=== PATIENT | male | born 1935 | race Caucasian/White ===

== ENCOUNTER → 2017-04-27 | Outpatient (CLI) | payer MEDICARE ==
--- NOTE | 2017-04-27 13:24 | DIAGNOSTIC IMAGING REPORT ---
LEFT FINGER(S) MIN 2 VIEWS ROUTINE CLINICAL HISTORY: 81 years-old Male presenting with M79.89 Swelling of left little middle finger, dig. TECHNIQUE: Frontal, oblique, and lateral views of the left third finger were obtained. COMPARISON: None. FINDINGS: Oblique fracture through the tuft of the distal phalanx of the left third finger. Soft tissue swelling at the tuft noted. No additional acute fracture is evident. No malalignment at the distal interphalangeal joint. IMPRESSION: Acute fracture of the tuft of the distal phalanx of the left third finger. Electronically signed by: Angel Lemons M.D. 04/27/2017 1:23 PM Dictated Date/Time: 04/27/2017 1:19 PM
--- NOTE | 2017-04-27 14:09 | DIAGNOSTIC IMAGING REPORT ---
LEFT EXTREMITY NONVASCULAR LIMITED CLINICAL HISTORY: 81 years-old Male presenting with TO EVALUATE SOFT TISSUE SWELLING. TECHNIQUE: Real-time grayscale ultrasound imaging of the left anterior middle finger was performed. Color Doppler was also performed. COMPARISON: Correlation made to plain radiographs performed earlier the same day. FINDINGS: Along the distal volar aspect of the left third finger, a 1.6 x 1.1 x 1.4 cm round hypoechoic isoechoic mass is noted. This is avascular. In retrospect, this lesion may be exerting mass effect with osseous erosion on the tuft of the distal phalanx. IMPRESSION: 1. Extraosseous mass with cortical thinning of the tuft of the distal phalanx of the third finger. 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 Electronically signed by: Angel Lemons M.D. 04/27/2017 2:08 PM Dictated Date/Time: 04/27/2017 2:00 PM
== END | disposition home or self-care (01) ==
LOC: C.ULTR 12:43
PROVIDERS: ATTEND Physician Assistant
DX: M79.89 Other specified soft tissue disorders (principal); S62.663A Nondisplaced fracture of distal phalanx of left middle finger, initial encounter for closed fracture; X58.XXXA Exposure to other specified factors, initial encounter

== ENCOUNTER → 2018-04-04 | Outpatient (CLI) | payer MEDICARE | END | disposition home or self-care (01) | LOC: C.RDSM 10:25 | PROVIDERS: ATTEND Orthopaedic Surgery Sports Medicine | DX: M25.562 Pain in left knee (principal) ==

== ENCOUNTER 2021-02-05 17:26 | Inpatient (IN) ==
[2021-02-05] MEDS ORDERED: SODIUM CHLORIDE 0.9% 500 ML IV STA (17:46)
--- NOTE | 2021-02-05 18:04 | XRay Report ---
XR chest 1V portable CLINICAL HISTORY: Acute change in mental status COMPARISON STUDY: April 2014 FINDINGS: The heart is enlarged. There is a retrocardiac opacity likely representing a hiatal hernia. There are left-sided pleural calcifications. There is no lobar consolidation. There is no overt fail ure.[ IMPRESSION: 1. Cardiomegaly 2. Pleural calcifications 3. Retrocardiac opacity likely representing a hiatal hernia 4. Possible pericardial calcifications ACT 112: Negative or not required by law. Electronically signed by: Jose R Patel M.D. 02/05/2021 6:02 PM
[2021-02-05 18:19] LABS: Basophils # (auto) 0.02 K/uL (0-0.2); Basophils % (auto) 0.3 %; Eosinophils % (auto) 1.7 %; Hematocrit (blood only) 38.3 % (42-52); Hemoglobin 13.1 g/dL (14.0-18.0); Immature Granulocytes # (auto) 0.01 K/uL (0.00-0.02); Immature Granulocytes % (auto) 0.2 %; Lymphocytes # (auto) 0.86 K/uL (1.2-3.4); Lymphocytes % (auto) 14.4 %; Mean Corpuscular Hemoglobin 32.5 pg (25-34); Mean Corpuscular Hgb Conc 34.2 g/dL (32-36); Mean Platelet Volume 10.9 fL (7.4-10.4); Monocytes # (auto) 0.53 K/uL (0.11-0.59); Monocytes % (auto) 8.9 %; Neutrophils # (auto) 4.45 K/uL (1.4-6.5); Neutrophils % (auto) 74.5 %; Platelet Count 151 K/uL (130-400); RDW Coefficient of Variation 12.7 % (11.5-14.5); Red Blood Count 4.03 M/uL (4.7-6.1); White Blood Count 5.97 K/uL (4.8-10.8)
--- NOTE | 2021-02-05 18:31 | Emergency Department Note ---
Impression & Plan Altered mental status, HTN (hypertension) ED Provider Note NAME: LENA SHEPPARD AGE: 85 SEX: M : 1935 ARRIVES VIA: Walk-In INFORMANT: Patient ED PROVIDER(S): David Ashby DO CHIEF COMPLAINT: Altered mental status HPI: Patient is an 85-year-old male who presents to the ER for confusion. This started this morning when she woke up around 9 AM. Patient does not remember where he is or what is going on. Patient denies any headache or change in vision. No chest pain or shortness of breath. He did have a headache within the past 24 hours but does not remember. Denies any belly pain, nausea, vomiting, or diarrhea. No dysuria urgency or frequency. ROS: See above HPI for pertinent positives & negatives. A total of 10 systems reviewed and were otherwise negative. PAST MEDICAL HISTORY:See Below PAST SURGICAL HISTORY:See Below FAMILY HISTORY:See Below SOCIAL HISTORY:See Below HOME MEDICATIONS:See Below ALLERGIES:See Below VITALS:See Below PHYSICAL EXAMINATION: GENERAL: Sitting up in bed, alert, well appearing, well nourished, no distress, non-toxic EYE EXAM: normal conjunctiva. PERRL and EOM's grossly intact. OROPHARYNX: no exudate, no erythema, lips, buccal mucosa, and tongue normal and mucous membranes are moist NECK: supple, no nuchal rigidity, no adenopathy, non-tender LUNGS: Clear to auscultation. Normal chest wall mechanics HEART: no murmurs, S1 normal and S2 normal ABDOMEN: abdomen soft, non-tender, normo-active bowel sounds, no masses, no rebound or guarding. UPPER EXTREMITIES: upper extremities are grossly normal. LOWER EXTREMITIES: No pitting edema. NEURO EXAM: Oriented to person, place but not year, cranial nerves II-XII intact, normal speech, no weakness of arms, no weakness of legs. No drift. Finger to nose intact. Gross sensation intact. MEDICAL DECISION MAKING: Patient is an 85-year-old male who presents the ER for confusion which started this morning. Patient was brought in by his . IV was established blood work was obtained. Labs show no significant leukocytosis or anemia. BMP along with LFTs bilirubin and lipase is unremarkable. UA was clean. Covid was negative. CT of the head was unremarkable. Portable AP upright 1 view of the chest was unremarkable as well. Patient is completely neurologically intact with the exception of confusion. He was updated bedside. Discussed with hospitalist for further evaluation. Triage Nursing notes reviewed. Limited review of prior medical records performed Vital Signs: reviewed and remarkable for HTN Differential diagnosis: Differential diagnoses includes but is not limited to toxic, metabolic, infectious, traumatic, cardiac, neurologic, hematologic, psychiatric and infla mmatory etiologies. ER treatment provided: See below Diagnostics interpreted by me: ECG: none Cardiac Monitoring: An order was placed for continuous cardiac monitoring. The monitor shows a rate of 62 with sinus rhythm. Laboratory studies: As stated above and show below. Imaging studies: CT head was unremarkable Portable AP upright 1 view the chest was unremarkable Consultation(s): Discussed the hospitalist for further evaluation Procedures: none Critical Care: None Past Med/Surg History Social History Feels Safe at Home: Yes Allergies Allergies Allergy/AdvReac Type Severity Reaction Status Date / Time morphine AdvReac Mild NAUSEA Verified 02/05/21 18:29 Home Meds Home Medications Medication Instructions Recorded Confirmed acetaminophen [Tylenol Extra 500 mg PO DIRECTED PRN 02/05/21 02/05/21 Strength] amlodipine 5 mg PO DAILY 02/05/21 02/05/21 aspirin 81 mg PO DAILY 02/05/21 02/05/21 atorvastatin 10 mg PO DAILY 02/05/21 02/05/21 naproxen sodium [Aleve] 440 mg PO QAM 02/05/21 02/05/21 omeprazole 40 mg PO DAILYBB 02/05/21 02/05/21 Results & Data (ED) Vital Signs Vital Signs - 24 hr 02/05/21 17:28 02/05/21 19:00 02/05/21 20:22 Temperature 36.3 C L Temperature Source Temporal Artery Scan Pulse Rate 82 Pulse Rate [Finger] 71 66 Respiratory Rate 20 18 14 Respiratory Effort / Characteristics Non-Labored Non-Labored Spontaneous Respiratory Depth Normal Normal Respiratory Pattern Regular Regular Blood Pressure 176/86 H Blood Pressure [Right Arm] 179/86 H 187/88 H Blood Pressure Mean 116 Blood Pressure Mean [Right Arm] 117 121 Blood Pressure Position Sitting Pulse Oximetry 95 95 95 Oxygen Delivery Method Room Air Room Air Room Air Sepsis Recent Fever Within 48 Hours No Sepsis New/Unexplained Change in Mental Status No Sepsis Action Taken by Nursing No Action Required Laboratory Data Result diagrams: 02/05/21 17:55 02/05/21 17:55 Lab Results 02/05/21 02/05/21 02/05/21 Range/Units 17:55 17:55 19:05 WBC 5.97 (4.8-10.8) K/uL RBC 4.03 L (4.7-6.1) M/uL Hgb 13.1 L (14.0-18.0) g/dL Hct 38.3 L (42-52) % MCV 95.0 (80-100) fL MCH 32.5 (25-34) pg MCHC 34.2 (32-36) g/dL RDW Std Deviation 44.0 (36.4-46.3) fL RDW Coeff of Imelda 12.7 (11.5-14.5) % Plt Count 151 (130-400) K/uL MPV 10.9 H (7.4-10.4) fL Immature Gran % (Auto) 0.2 % Neut % (Auto) 74.5 % Lymph % (Auto) 14.4 % [place] % (Auto) 8.9 % Eos % (Auto) 1.7 % Baso % (Auto) 0.3 % Neut # (Auto) 4.45 (1.4-6.5) K/uL Lymph # (Auto) 0.86 L (1.2-3.4) K/uL [place] # (Auto) 0.53 (0.11-0.59) K/uL Eos # (Auto) 0.10 (0-0.5) K/uL Baso # (Auto) 0.02 (0-0.2) K/uL Immature Gran # (Auto) 0.01 (0.00-0.02) K/uL Sodium 139 (136-145) mmol/L Potassium 3.8 (3.5-5.1) mmol/L Chloride 107 (98-107) mmol/L Carbon Dioxide 26 (21-32) mmol/L Anion Gap 6.0 (3-11) BUN 16 (7-18) mg/dl Creatinine 0.75 (0.6-1.4) mg/dl Est Cr Clr Drug Dosing 73.0 ml/min Est GFR ( Amer) 96.3 ml/min Est GFR (Non-Af Amer) 83.1 ml/min BUN/Creatinine Ratio 21.2 H (10-20) Glucose 92 (70-99) mg/dl Calcium 8.7 (8.5-10.1) mg/dl Total Bilirubin 1.0 (0.2-1) mg/dl AST 14 L (15-37) U/L ALT 15 (12-78) U/L Alkaline Phosphatase 95 (45-117) U/L Total Protein 6.8 (6.4-8.2) gm/dl Albumin 3.5 (3.4-5.0) gm/dl Globulin 3.3 (2.5-4.0) gm/dl Albumin/Globulin Ratio 1.0 (0.9-2) Lipase 175 (73-393) U/L Urine Color Yellow Urine Appearance Clear (Clear) Urine pH 7.0 (4.5-7.5) Ur Specific [place] 1.004 (1.000-1.030) Urine Protein Negative (Negative) Urine Glucose (UA) Negative (Negative) Urine Ketones Negative (Negative) Urine Blood Negative (Negative) Urine Nitrite Negative (Negative) Urine Bilirubin Negative (Negative) Urine Urobilinogen Negative (Negative) Ur Leukocyte Esterase Negative (Negative) COVID-19 Eval Order SARS-CoV-2 (PCR) (Negative) 02/05/21 02/05/21 Range/Units 20:26 20:26 WBC (4.8-10.8) K/uL RBC (4.7-6.1) M/uL Hgb (14.0-18.0) g/dL Hct (42-52) % MCV (80-100) fL MCH (25-34) pg MCHC (32-36) g/dL RDW Std Deviation (36.4-46.3) fL RDW Coeff of Imelda (11.5-14.5) % Plt Count (130-400) K/uL MPV (7.4-10.4) fL Immature Gran % (Auto) % Neut % (Auto) % Lymph % (Auto) % [place] % (Auto) % Eos % (Auto) % Baso % (Auto) % Neut # (Auto) (1.4-6.5) K/uL Lymph # (Auto) (1.2-3.4) K/uL [place] # (Auto) (0.11-0.59) K/uL Eos # (Auto) (0-0.5) K/uL Baso # (Auto) (0-0.2) K/uL Immature Gran # (Auto) (0.00-0.02) K/uL Sodium (136-145) mmol/L Potassium (3.5-5.1) mmol/L Chloride (98-107) mmol/L Carbon Dioxide (21-32) mmol/L Anion Gap (3-11) BUN (7-18) mg/dl Creatinine (0.6-1.4) mg/dl Est Cr Clr Drug Dosing ml/min Est GFR ( Amer) ml/min Est GFR (Non-Af Amer) ml/min BUN/Creatinine Ratio (10-20) Glucose (70-99) mg/dl Calcium (8.5-10.1) mg/dl Total Bilirubin (0.2-1) mg/dl AST (15-37) U/L ALT (12-78) U/L Alkaline Phosphatase (45-117) U/L Total Protein (6.4-8.2) gm/dl Albumin (3.4-5.0) gm/dl Globulin (2.5-4.0) gm/dl Albumin/Globulin Ratio (0.9-2) Lipase (73-393) U/L Urine Color Urine Appearance (Clear) Urine pH (4.5-7.5) Ur Specific [place] (1.000-1.030) Urine Protein (Negative) Urine Glucose (UA) (Negative) Urine Ketones (Negative) Urine Blood (Negative) Urine Nitrite (Negative) Urine Bilirubin (Negative) Urine Urobilinogen (Negative) Ur Leukocyte Esterase (Negative) COVID-19 Eval Order Covid19 at [facility] SARS-CoV-2 (PCR) NEGATIVE (Negative) Administered Medications Discontinued Medications Sodium Chloride (Nss) 500 mls @ 999 mls/hr IV .Q31M STA Stop: 02/05/21 18:16 Last Infusion: 02/05/21 19:34 Dose: 0 mls/hr Documented by: [id number] Admin: 02/05/21 19:03 Dose: 999 mls/hr Documented by: [id number] Ioversol (Optiray 350 500ml) 118 ml IV ONCE ONE Stop: 02/05/21 21:34 Last Admin: 02/05/21 21:34 Dose: 1 ml Documented by: [id number] Imaging Data Radiologist's Impression: Chest X-Ray 02/05/21 17:46 XR chest 1V portable CLINICAL HISTORY: Acute change in mental status COMPARISON STUDY: April 2014 FINDINGS: The heart is enlarged. There is a retrocardiac opacity likely representing a hiatal hernia. There are left-sided pleural calcifications. There is no lobar consolidation. There is no overt failure.[ IMPRESSION: 1. Cardiomegaly 2. Pleural calcifications 3. Retrocardiac opacity likely representing a hiatal hernia 4. Possible pericardial calcifications ACT 112: Negative or not required by law. Electronically signed by: Jose R Patel M.D. 02/05/2021 6:[address] 02/05/21 17:46 CT head/brain wo con CLINICAL HISTORY: Acute change in mental status COMPARISON STUDY: No previous studies for comparison. TECHNIQUE: Axial CT of the brain is performed from the vertex to the skull base. IV contrast was not administered for this examination. A dose lowering technique was utilized adhering to the principles of ALARA. CT DOSE: 614.27 mGy.cm FINDINGS: No intra or extra-axial mass lesions are visualized. There is no CT evidence of acute cortical infarction. There is no evidence of midline shift. There is no acute hemorrhage. No calvarial fractures are visualized. There are moderate white matter hypodensities likely on a small vessel basis. 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 There is no evidence of pathologic ventricular dilatation. There is no evidence of acute sinusitis. 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 IMPRESSION: No acute intracranial findings ACT 112: Negative or not required by law. Electronically signed by: Jose R Patel M.D. 02/05/2021 7:40 PM Discharge Plan Visit Data Chief Complaint: Altered Mental Status Stated Complaint: POSSIBLE MINI STROKE-TROUBLED MEMORY ED Provider: David Ashby Discharge Problem: Altered mental status, HTN (hypertension) Forms Stand Alone Forms: My [facility] [employer] Prescriptions Prescriptions: No Action atorvastatin 10 mg tablet 10 mg PO DAILY RF: 0 amlodipine 5 mg tablet 5 mg PO DAILY RF: 0 omeprazole 40 mg capsule,delayed release(DR/EC) 40 mg PO DAILYBB RF: 0 aspirin 81 mg Tablet,Delayed Release (Dr/Ec) 81 mg PO DAILY RF: 0 acetaminophen [Tylenol Extra Strength] 500 mg Tablet 500 mg PO DIRECTED PRN (Reason: Pain) RF: 0 naproxen sodium [Aleve] 220 mg Tablet 440 mg PO QAM RF: 0 Discharge Problem: Altered mental status Qualifiers: Altered mental status type: unspecified Qualified Code(s): R41.82 - Altered mental status, unspecified HTN (hypertension) Qualifiers: Hypertension type: unspecified Qualified Code(s): I10 - Essential (primary) hypertension
[2021-02-05 18:39] LABS: Albumin Level 3.5 gm/dl (3.4-5.0); BUN Creatinine Ratio 21.2 (10-20); Calcium 8.7 mg/dl (8.5-10.1); Est GFR (African American) 96.3 ml/min; Est GFR (Non-African American) 83.1 ml/min; Potassium 3.8 mmol/L (3.5-5.1)
[2021-02-05 18:41] LABS: Globulin 3.3 gm/dl (2.5-4.0); Total Protein 6.8 gm/dl (6.4-8.2)
[2021-02-05 19:21] LABS: Appearance Urine Clear (Clear); Bilirubin Urine Negative (Negative); Blood Urine Negative (Negative); Color Urine Yellow; Glucose Urine UA Negative (Negative); Ketones Urine Negative (Negative); Leukocyte Esterase Urine Negative (Negative); Nitrite Urine Negative (Negative); Protein Urine Negative (Negative); Specific Gravity Urine 1.004 (1.000-1.030); Urobilinogen Urine Negative (Negative)
--- NOTE | 2021-02-05 19:41 | CT Scan Report ---
CT head/brain wo con CLINICAL HISTORY: Acute change in mental status COMPARISON STUDY: No previous studies for comparison. TECHNIQUE: Axial CT of the brain is performed from the vertex to the skull base. IV contrast was not administered for this examination. A dose lowering technique was utilized adhering to the principles of ALARA. CT DOSE: 614.27 mGy.cm FINDINGS: No intra or extra-axial mass lesions are visualized. There is no CT evidence of acute cortical infarc tion. There is no evidence of midline shift. There is no acute hemorrhage. No calvarial fractures ar e visualized. There are moderate white matter hypodensities likely on a small vessel basis. There is an old left oc cipital lobe infarct. There is no evidence of pathologic ventricular dilatation. There is no evidence of acute sinusitis. 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 IMPRESSION: No acute intracranial findings ACT 112: Negative or not required by law. Electronically signed by: Jose R Patel M.D. 02/05/2021 7:40 PM
[2021-02-05] MEDS ORDERED: OPTIRAY 350 500ml IV ONE (21:33)
--- NOTE | 2021-02-05 22:45 | History & Physical Report ---
Date of Service February 05, 2021 Assessment & Plan (1) Aphasia: Sherlyn Tabor is a 83-year-old male with past medical history significant for hyperlipidemia and hypertension; who presents for concerns of altered mental status and abnormal speech starting this morning. 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 -Lipid panel ordered -A1c ordered -MRI ordered -Neuro consulted as part of stroke protocol given concerns for stroke with aphasia maintained -As needed medications for hypertension Hypertension: -Continue home amlodipine Hyperlipidemia: -Continue home atorvastatin -Likely will need escalation in dosing given stroke concerns Diet: Advance as tolerated CODE STATUS: DNR/DNI DVT prophylaxis: Deferred at this time (2) HTN (hypertension): (3) Hyperlipidemia: (4) GERD (gastroesophageal reflux disease): History of Present Illness Primary Care Provider: Tresa Martin DO Sherlyn Tabor is a 83-year-old male with past medical history significant for hyperlipidemia and hypertension; who presents for concerns of altered mental status and abnormal speech starting this morning. Patient seen in the ER emergency department with family at bedside, patient continuing to have broken speech unable to follow or answer questions appropriately, when asked about how he was feeling family indicates he tells a story based off of a headache that he had months ago. Will indicate that he was driving earlier in the day however family indicates that this is incorrect. What family is able to corroborate is that he woke up early this morning originally's just staring off into space, and then upon getting up from bed he was having garbled speech throughout the entire day which ultimately caused them to present to the emergency room. Patient endorses no current symptoms as far as he can tell given inappropriate and inconsistent verbal responses to repetitive questioning. Allergies Allergy/AdvReac Type Severity Reaction Status Date / Time morphine AdvReac Mild NAUSEA Verified 02/05/21 18:29 Home Medications Medication Instructions Recorded Confirmed Type acetaminophen [Tylenol Extra 500 mg PO DIRECTED PRN 02/05/21 02/05/21 History Strength] amlodipine 5 mg PO DAILY 02/05/21 02/05/21 History aspirin 81 mg PO DAILY 02/05/21 02/05/21 History naproxen sodium [Aleve] 440 mg PO QAM 02/05/21 02/05/21 History omeprazole 40 mg PO DAILYBB 02/05/21 02/05/21 History atorvastatin 40 mg PO HS #30 tab 02/06/21 Rx Past Med/Surg History Medical History HTN (hypertension) Hyperlipidemia Surgical History History of appendectomy Family History Mother , in her late 30s after complications from a . No problems noted. 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 Feels Safe at Home: Yes Assistive Devices: Cane Review of Systems Review of Systems: All systems reviewed & are unremarkable except as noted in HPI & below Physical Exam Constitutional: WD/WN, vitals as above Eyes: PERRL, conjunctivae normal, anicteric sclerae Respiratory: normal respiratory effort, lungs clear to auscultation Auscultation: no crackles, no rales, no rhonchi and no wheezes Cardiovascular: Rate/Rhythm: regular rate and regular rhythm Heart Sounds: no gallop, no murmur and no cardiac rub Vessels: normal peripheral pulses; no JVD Extremities: no edema Gastrointestinal (Abdomen): Inspection/Auscultation: normal bowel sounds; abdomen not distended Percussion/Palpation: abdomen soft; abdomen nontender and no guarding Musculoskeletal: no cyanosis or clubbing, extremities motor strength 5/5 Skin: no rashes, warm and dry Neurologic: Speech / Cognition: no expressive aphasia and no receptive aphasia Cranial Nerves: PERRL, normal accommodation, EOM intact bilaterally, normal facial strength, tongue midline, normal hearing, able to rotate head bilaterally, able to elevate shoulders bilaterally, no nystagmus and symmetric palate elevation Psychiatric: Orientation: alert; + not oriented x 3 Results & Data Results & Data ([facility]) Vital Signs (Past 12 Hours) Vital Signs Temp Pulse Pulse Resp BP BP Pulse Ox 02/05/21 20:22 66 14 187/88 H 95 02/05/21 19:00 71 18 179/86 H 95 02/05/21 17:28 36.3 C L 82 20 176/86 H 95 Laboratory Results 02/05/21 02/05/21 02/05/21 Range/Units 20:26 20:26 19:05 WBC (4.8-10.8) K/uL RBC (4.7-6.1) M/uL Hgb (14.0-18.0) g/dL Hct (42-52) % MCV (80-100) fL MCH (25-34) pg MCHC (32-36) g/dL RDW Std Deviation (36.4-46.3) fL RDW Coeff of Imelda (11.5-14.5) % Plt Count (130-400) K/uL MPV (7.4-10.4) fL Immature Gran % (Auto) % Neut % (Auto) % Lymph % (Auto) % [place] % (Auto) % Eos % (Auto) % Baso % (Auto) % Neut # (Auto) (1.4-6.5) K/uL Lymph # (Auto) (1.2-3.4) K/uL [place] # (Auto) (0.11-0.59) K/uL Eos # (Auto) (0-0.5) K/uL Baso # (Auto) (0-0.2) K/uL Immature Gran # (Auto) (0.00-0.02) K/uL Sodium (136-145) mmol/L Potassium (3.5-5.1) mmol/L Chloride (98-107) mmol/L Carbon Dioxide (21-32) mmol/L Anion Gap (3-11) BUN (7-18) mg/dl Creatinine (0.6-1.4) mg/dl Est Cr Clr Drug Dosing ml/min Est GFR ( Amer) ml/min Est GFR (Non-Af Amer) ml/min BUN/Creatinine Ratio (10-20) Glucose (70-99) mg/dl Calcium (8.5-10.1) mg/dl Total Bilirubin (0.2-1) mg/dl AST (15-37) U/L ALT (12-78) U/L Alkaline Phosphatase (45-117) U/L Total Protein (6.4-8.2) gm/dl Albumin (3.4-5.0) gm/dl Globulin (2.5-4.0) gm/dl Albumin/Globulin Ratio (0.9-2) Lipase (73-393) U/L Urine Color Yellow Urine Appearance Clear (Clear) Urine pH 7.0 (4.5-7.5) Ur Specific [place] 1.004 (1.000-1.030) Urine Protein Negative (Negative) Urine Glucose (UA) Negative (Negative) Urine Ketones Negative (Negative) Urine Blood Negative (Negative) Urine Nitrite Negative (Negative) Urine Bilirubin Negative (Negative) Urine Urobilinogen Negative (Negative) Ur Leukocyte Esterase Negative (Negative) COVID-19 Eval Order Covid19 at [facility] SARS-CoV-2 (PCR) NEGATIVE (Negative) 02/05/21 02/05/21 Range/Units 17:55 17:55 WBC 5.97 (4.8-10.8) K/uL RBC 4.03 L (4.7-6.1) M/uL Hgb 13.1 L (14.0-18.0) g/dL Hct 38.3 L (42-52) % MCV 95.0 (80-100) fL MCH 32.5 (25-34) pg MCHC 34.2 (32-36) g/dL RDW Std Deviation 44.0 (36.4-46.3) fL RDW Coeff of Imelda 12.7 (11.5-14.5) % Plt Count 151 (130-400) K/uL MPV 10.9 H (7.4-10.4) fL Immature Gran % (Auto) 0.2 % Neut % (Auto) 74.5 % Lymph % (Auto) 14.4 % [place] % (Auto) 8.9 % Eos % (Auto) 1.7 % Baso % (Auto) 0.3 % Neut # (Auto) 4.45 (1.4-6.5) K/uL Lymph # (Auto) 0.86 L (1.2-3.4) K/uL [place] # (Auto) 0.53 (0.11-0.59) K/uL Eos # (Auto) 0.10 (0-0.5) K/uL Baso # (Auto) 0.02 (0-0.2) K/uL Immature Gran # (Auto) 0.01 (0.00-0.02) K/uL Sodium 139 (136-145) mmol/L Potassium 3.8 (3.5-5.1) mmol/L Chloride 107 (98-107) mmol/L Carbon Dioxide 26 (21-32) mmol/L Anion Gap 6.0 (3-11) BUN 16 (7-18) mg/dl Creatinine 0.75 (0.6-1.4) mg/dl Est Cr Clr Drug Dosing 73.0 ml/min Est GFR ( Amer) 96.3 ml/min Est GFR (Non-Af Amer) 83.1 ml/min BUN/Creatinine Ratio 21.2 H (10-20) Glucose 92 (70-99) mg/dl Calcium 8.7 (8.5-10.1) mg/dl Total Bilirubin 1.0 (0.2-1) mg/dl AST 14 L (15-37) U/L ALT 15 (12-78) U/L Alkaline Phosphatase 95 (45-117) U/L Total Protein 6.8 (6.4-8.2) gm/dl Albumin 3.5 (3.4-5.0) gm/dl Globulin 3.3 (2.5-4.0) gm/dl Albumin/Globulin Ratio 1.0 (0.9-2) Lipase 175 (73-393) U/L Urine Color Urine Appearance (Clear) Urine pH (4.5-7.5) Ur Specific [place] (1.000-1.030) Urine Protein (Negative) Urine Glucose (UA) (Negative) Urine Ketones (Negative) Urine Blood (Negative) Urine Nitrite (Negative) Urine Bilirubin (Negative) Urine Urobilinogen (Negative) Ur Leukocyte Esterase (Negative) COVID-19 Eval Order SARS-CoV-2 (PCR) (Negative) Diagnostic Findings CTA HEAD: Comparison: CT head 02/05/21. Intracranial atherosclerosis. Patent intracranial circulation. No large vessel occlusion. No aneurysm. Radiologist: Rodri Niño M.D. CTA NECK: Mild stenosis of the proximal left subclavian artery due to atherosclerotic plaque. Common carotid arteries are adequately patent. Internal carotid arteries are adequately patent. Vertebral arteries are adequately patent. Left vertebral artery is dominant. Cervical spondylosis. Radiologist: Rodri Niño M.D. Medications Administered Home Medication List Medication Instructions Recorded acetaminophen [Tylenol Extra 500 mg PO DIRECTED PRN 02/05/21 Strength] amlodipine 5 mg PO DAILY 02/05/21 aspirin 81 mg PO DAILY 02/05/21 atorvastatin 10 mg PO DAILY 02/05/21 naproxen sodium [Aleve] 440 mg PO QAM 02/05/21 omeprazole 40 mg PO DAILYBB 02/05/21 Supervising Physician Co-Signing Physician Notes Attending addendum: I have physically seen this patient, have supervised the medical residents activities, and agree with the H&P unless as otherwise noted. Assessment and Plan: Aphasia/altered mental status- Stroke without TPA order set CT head with small vessel disease and old left occipital lobe infarct CTA head neck only significant for mild stenosis of left subclavian artery MRI brain without contrast pending Consult PT/OT/speech/neurology Hypertension- Continue amlodipine with hold parameters Hyperlipidemia- High-dose atorvastatin Check a fasting lipid panel and hemoglobin A1c Remaining orders and notations as noted Resident Activity Tracking Resident Involvement: Resident Care Provided Care Provided: Adult Hospital Medicine (1) HTN (hypertension) Hypertension type: unspecified Qualified Code(s): I10 - Essential (primary) hypertension
[2021-02-06] MEDS ORDERED: PHARMACIST DISCHARGE MED REC CONSULT PRN (00:05)
[2021-02-06 07:18] LABS: BUN Creatinine Ratio 18.4 (10-20); Calcium 8.8 mg/dl (8.5-10.1); Creatinine Clr Calc Pharmacy 91.3 ml/min; Est GFR (African American) 105.5 ml/min; Potassium 4.1 mmol/L (3.5-5.1)
[2021-02-06 07:23] LABS: Hematocrit (blood only) 39.4 % (42-52); Hemoglobin 13.4 g/dL (14.0-18.0); Mean Corpuscular Hemoglobin 32.9 pg (25-34); Mean Corpuscular Volume 96.8 fL (80-100); Mean Platelet Volume 12.5 fL (7.4-10.4); Platelet Count 99 K/uL (130-400); RDW Coefficient of Variation 12.8 % (11.5-14.5); RDW Standard Deviation 45.2 fL (36.4-46.3); Red Blood Count 4.07 M/uL (4.7-6.1); White Blood Count 4.64 K/uL (4.8-10.8)
[2021-02-06 07:24] LABS: Basophils # (auto) 0.02 K/uL (0-0.2); Basophils % (auto) 0.4 %; Eosinophils # (auto) 0.11 K/uL (0-0.5); Eosinophils % (auto) 2.4 %; Immature Granulocytes # (auto) 0.01 K/uL (0.00-0.02); Immature Granulocytes % (auto) 0.2 %; Lymphocytes # (auto) 0.91 K/uL (1.2-3.4); Lymphocytes % (auto) 19.6 %; Monocytes # (auto) 0.39 K/uL (0.11-0.59); Monocytes % (auto) 8.4 %; Platelet Estimate Decreased (Normal)
[2021-02-06 08:17] LABS: Partial Thromboplastin Ratio 1.2; Partial Thromboplastin Time 31.9 Seconds (21.0-31.0); Prothrombin Time 10.2 Seconds (9.0-12.0)
--- NOTE | 2021-02-06 08:46 | CT Scan Report ---
CT angio neck with con CLINICAL HISTORY: acute memory loss POSSIBLE STROKE COMPARISON STUDY: No previous studies for comparison. TECHNIQUE: CT angiography was performed from the aortic arch to the skull base. MIP imaging was perfo rmed. The patient was scanned in a dynamic helical fashion during intravenous administration of 118 c c of Optiray. A dose lowering technique was utilized adhering to the principles of ALARA. CT DOSE: 605.99 mGy.cm Technique: CT angiogram of the carotid and vertebral arteries was obtained using intravenous contrast and 3-D reconstruction. NASCET criteria was utilized. Findings: There are pleural calcifications present. There are apical blebs present. 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 There is a 50% diameter stenosis of the proximal left subclavian artery. The right carotid revealed no evidence of aneurysm and no evidence of dissection. There is no evidenc e of hemodynamic significant stenosis. The left carotid revealed no evidence of hemodynamic significant stenosis. There is no evidence of an eurysm. There is no evidence of dissection. There is no evidence of hemodynamically significant vertebral stenosis. There is no evidence of verte bral dissection. IMPRESSION: 1. 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 No evidence of hemodynamically significant internal carotid or vertebral artery stenosis. ACT 112: Negative or not required by law. Electronically signed by: Jose R Patel M.D. 02/06/2021 8:45 AM
[2021-02-06 08:59] LABS: Lyme Ab IgG w/WB Rflx Negative (Negative); Lyme Ab IgM w/WB Rflx Negative (Negative)
[2021-02-06] MEDS ORDERED: ATORVASTATIN 10 MG TAB PO SCH (09:00)
[2021-02-06] MEDS ORDERED: amLODIPine BESYLATE 5 MG TAB PO SCH (09:00)
[2021-02-06] MEDS ORDERED: ASPIRIN 81 MG ECTAB PO SCH (09:00)
--- NOTE | 2021-02-06 09:02 | CT Scan Report ---
CT angio head w con CLINICAL HISTORY: acute memory loss POSSIBLE STROKE TECHNIQUE: CT angiography of the head was performed in a dynamic helical fashion during intravenous a dministration of 118 cc of Optiray. MIP imaging was performed. A dose lowering technique was utilized adhering to the principles of ALARA. CT DOSE: COMPARISON STUDY: No previous studies for comparison. FINDINGS: There are no lesion suspicious for aneurysm. There are atheromatous changes within the cave rnous and supraclinoid internal carotids with mild nonhemodynamically significant internal carotid ar ofe narrowing. There are no major intracranial branch occlusions. The dural venous sinuses appear pa tent bilaterally. There is a origin left posterior cerebral artery. IMPRESSION: 1. No evidence of aneurysm 2. No evidence of major intracranial branch occlusion 3. Cavernous and supraclinoid internal carotid artery atheromatous change with mild bilateral nonhemo dynamically significant internal carotid artery narrowing.. 4. origin of the left posterior cerebral artery ACT 112: Negative or not required by law. Electronically signed by: Jose R Patel M.D. 02/06/2021 9:01 AM
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
[2021-02-06] MEDS ORDERED: GADOBUTROL 30ML VIAL IV ONE (10:34)
--- NOTE | 2021-02-06 11:02 | Magnetic Resonance Report ---
MRI OF THE BRAIN WITHOUT AND WITH IV CONTRAST CLINICAL HISTORY: Aphasia. COMPARISON STUDY: Head CT and CTA of the head 02/05/2021. TECHNIQUE: Utilizing a 1.5 Betty magnet and dedicated coil, multiplanar, multiecho imaging of the br ain was performed pre and postcontrast administration. IV administration of 8.5 mL of Gadavist contr ast was uneventful. FINDINGS: Note is made of an 8 mm focus of restricted diffusion within the anteromedial left thalamus . There is an additional 7 mm focus of restricted diffusion within the superior left thalamus. No acu te hemorrhage is present. There is no mass effect. Note is made of encephalomalacia within the left o ccipital lobe with adjacent T2 hyperintensity suggestive of old blood product. Ventricular system is unremarkable. Basal cisterns are patent. There are no extra axial collections. Moderate atrophy is no ghada. Extensive periventricular white matter T2 hyperintensity is noted. There is no intracranial mass or pathologic enhancement. Flow-voids for the major intracranial vessels are present. There is no ca lvarial lesion. Mucous retention cyst within the left maxillary sinus measures 2.4 cm. Orbits are unr emarkable. There is no evidence for sinusitis. No mastoid fluid. IMPRESSION: 1. Two foci of acute infarction within the left thalamus measuring up to 8 mm. No mass effect. No acu te hemorrhage. 2. 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 3. Extensive small vessel disease. Moderate atrophy. ACT 112: Negative or not required by law. Electronically signed by: Marco Young M.D. 02/06/2021 11:01 AM
--- NOTE | 2021-02-06 11:53 | Hospitalist Progress Note ---
Date of Service February 06, 2021 Assessment & Plan (1) Aphasia: Sherlyn Tabor is a 83-year-old male with past medical history significant for hyperlipidemia and hypertension; who presents for concerns of altered mental status and abnormal speech starting this morning. 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 -Lipid panel ordered -A1c ordered -MRI ordered -Neuro consulted as part of stroke protocol given concerns for stroke with aphasia maintained -As needed medications for hypertension Hypertension: -Continue home amlodipine Hyperlipidemia: -Continue home atorvastatin -Likely will need escalation in dosing given stroke concerns Diet: Advance as tolerated CODE STATUS: DNR/DNI DVT prophylaxis: Deferred at this time (2) HTN (hypertension): (3) Hyperlipidemia: (4) GERD (gastroesophageal reflux disease): Admission and Anticipated Discharge Date Admission Date: February 05, 2021 Subjective No acute events overnight. This morning the patient was not able to maintain a consistent story regarding his coming to the hospital, although he was able to speak clearly and coherently, and he seemed to have adequate comprehension as well. Patient reports that he is at his normal baseline without concerns. He said it was Jan 13 2021 and seemed surprised when I told him it was 02/06. Does report being bitten by an unknown bug several weeks ago but denies tick bites. Reports 1 mixed drink per day but no more than this. Also reports extensive smoking history for "many years". Denies other drug use. He denies fever/chills, syncope/near-syncope, seizures, vision/hearing changes, numbness/weakness. Denies chest pain, palpitations, SOB, cough, N/V, diarrhea, abdominal pain, rash. Results & Data Results & Data ([facility]) Vital Signs (Past 12 Hours) Vital Signs Temp Pulse Pulse Resp BP Pulse Ox 02/06/21 10:24 77 02/06/21 07:55 36.5 C 124 H 19 103/63 97 02/06/21 03:25 36.6 C 72 20 149/75 H 97 02/06/21 00:13 36.5 C 72 16 172/82 H 98 (1) HTN (hypertension) Hypertension type: unspecified Qualified Code(s): I10 - Essential (primary) hypertension
--- NOTE | 2021-02-06 12:10 | Discharge Summary ---
Date of Service February 06, 2021 Admission HPI Per Admitting Provider Sherlyn Tabor is a 83-year-old male with past medical history significant for hyperlipidemia and hypertension; who presents for concerns of altered mental status and abnormal speech starting this morning. Patient seen in the ER emergency department with family at bedside, patient continuing to have broken speech unable to follow or answer questions appropriately, when asked about how he was feeling family indicates he tells a story based off of a headache that he had months ago. Will indicate that he was driving earlier in the day however family indicates that this is incorrect. What family is able to corroborate is that he woke up early this morning originally's just staring off into space, and then upon getting up from bed he was having garbled speech throughout the entire day which ultimately caused them to present to the emergency room. Patient endorses no current symptoms as far as he can tell given inappropriate and inconsistent verbal responses to repetitive questioning. Admission Exam Per Admitting Provider Constitutional: WD/WN, vitals as above Eyes: PERRL, conjunctivae normal, anicteric sclerae Respiratory: normal respiratory effort, lungs clear to auscultation Auscultation: no crackles, no rales, no rhonchi and no wheezes Cardiovascular: Rate/Rhythm: regular rate and regular rhythm Heart Sounds: no gallop, no murmur and no cardiac rub Vessels: normal peripheral pulses; no JVD Extremities: no edema Gastrointestinal (Abdomen): Inspection/Auscultation: normal bowel sounds; abdomen not distended Percussion/Palpation: abdomen soft; abdomen nontender and no guarding Musculoskeletal: no cyanosis or clubbing, extremities motor strength 5/5 Skin: no rashes, warm and dry Neurologic: Speech / Cognition: no expressive aphasia and no receptive aphasia Cranial Nerves: PERRL, normal accommodation, EOM intact bilaterally, normal facial strength, tongue midline, normal hearing, able to rotate head bilaterally, able to elevate shoulders bilaterally, no nystagmus and symmetric palate elevation Psychiatric: Orientation: alert; + not oriented x 3 Principal Diagnosis Left Thalamus CVA Discharge Exam Constitutional WD/WN, vitals as above Eyes PERRL, conjunctivae normal, anicteric sclerae Respiratory normal respiratory effort, lungs clear to auscultation Cardiovascular RRR, no murmur, no edema Gastrointestinal (Abdomen) normal bowel sounds, soft, nontender, no hepatosplenomegaly Musculoskeletal no cyanosis or clubbing, extremities motor strength 5/5 Skin no rashes, warm and dry Neurologic patellar DTR's 2+ bilat, sensation intact and PERRL, EOMI, accommodation nl, no face palsy, no dysarthria normal touch/pain/proprioception, CN's II-XI intact bilaterally and awake; no focal motor deficits and not confused Speech / Cognition: normal speech, no expressive aphasia, no receptive aphasia and normal cognition Motor/Sensory: no tremor Coordination: normal ryuvcl-lm-movz test, normal gdgb-sa-jgbn test and normal Romberg test Psychiatric Orientation: alert, oriented to person, oriented to place and oriented to time (not oriented to month - says it is 01/13) Eye Contact: good eye contact Discharge Data Allergies Allergy/AdvReac Type Severity Reaction Status Date / Time morphine AdvReac Mild NAUSEA Verified 02/05/21 18:29 Consultations 02/05/21 20:17 ED Decision to Admit Stat 02/06/21 00:05 Consult Neurology Routine Ordered Studies 02/05/21 17:46 CT head/brain wo con Stat 02/05/21 20:24 CT angio head w con Stat CT angio neck with con Stat 02/06/21 00:05 MR brain wo/w con Routine Hospital Course (1) Aphasia: Sherlyn Tabor is a 83-year-old male with past medical history significant for hyperlipidemia and hypertension, who was admitted to [facility] from 02/05 - 02/06 for acute left thalamus CVA. Left Thalamus CVA: Slurred speech before presentation to the ED, speech coherent without productive/receptive aphasia or dysarthria in the hospital although there was ap parent short-term memory loss. MRI brain showing two foci of acute infarct in left thalamus measuring 8mm without hemorrhage or mass effect. CTA neck showing mild stenosis of proximal left subclavian artery and head imaging showing small vessel disease - suspect CVA due to intracranial atherosclerosis leading to acute thrombosis and subsequent small vessel occlusion. - no neuro deficits besides for short-term memory loss - likely chronic - speech therapy eval - no concern for aspiration - Lipid panel WNL; home Atorvastatin increased to 40mg PO QHS on discharge - continue home baby Aspirin - A1c pending - TTE results pending - patient will f/u with PCP and Neurology after discharge Thrombocytopenia Platelets 151 --> 99, PT/PTT/INR within normal limits. Lyme negative. No transaminitis. No signs of active bleeding. Suspect due to hemodilution after NSS bolus in the ED. - recommend repeat CBC in 1 week as an outpatient Hypertension: - Continue home amlodipine Hyperlipidemia: - Increased home atorvastatin as stated above - repeat lipid panel in 3 months as an outpatient (2) HTN (hypertension): (3) Hyperlipidemia: (4) GERD (gastroesophageal reflux disease): Total Time Total Time Spent Total Time Spent (In Minutes): 45 minutes Total Time Includes: Examination of the Patient, Discharge Planning, Medication Reconciliation and Communication With Other Providers Discharge Plan Discharge Items Patient Disposition: Home - Self-Care Reason For Visit: APHASIA Discharge Diagnosis: Acute left thalamus CVA Activity: Per Instructions section Non-emergency contact: Primary Care Provider and Neurologist Call non-emergency contact if: you have any medication questions and your symptoms worsen Follow-up/Referrals: Duc Lawson MD [Physician] - (please schedule follow up in the next 2-4 weeks) Tresa Martin DO [Primary Care Provider] - Diet: Regular Addtl Attending Provider Instructions: You were admitted to [facility] from 02/05 - 02/06 for speech and short-term memory problems that were determined to be due to a stroke. Brain imaging (CT and MRI) showed a stroke in the left portion of a part of the brain called the thalamus. Memory issues can sometimes be associated with a stroke in this region. Brain imaging also showed extensive vascular disease (disease of blood vessels in the brain) which is likely due to your extensive smoking histor y; this is the most likely cause of your stroke, as well. We consulted our Neurologists, who recommended that your Atorvastatin medication be increased to help avoid another stroke. You will also follow up with Neurology in addition to your PCP, regarding this hospitalization. Lastly, you were found to have a low number of clotting cells called platelets in the hospital. Thankfully you did not have any signs of bleeding or other complications of this. We recommend that you get repeat blood work with your PCP in 1 week, to ensure that this does not continue to stay low. You will be discharged on 02/06 in stable condition. You should start taking Atorvastatin at the increased dose - 40mg at night. You should continue to take all of your other home medications as prescribed. Addtl Cruise Director Provider Instructions: Risk Factors for Stroke: You can reduce your chances of stroke by working with your medical provider to adopt a healthy lifestyle. Some specific ways to lower your chance of stroke are: * If you are a smoker, now is the time to stop smoking cigarettes * If you are diabetic, improve the control of your blood sugars * Avoid excessive amounts of alcohol * Control high blood pressure * Lose weight if you are overweight * Be sure to lead an active lifestyle * Eat a healthy diet low in salt, cholesterol and fat You should know about other risk factors for stroke that you are unable to control. These include: * Age 55 years or older * Male gender * Certain racial groups: , or / * Family History of Stroke, Mini stroke or Heart Attack * Sickle Cell Disease Follow Up: It is important for you to keep your follow up appointments with your medical provider. Who to Call and When: Medical Emergencies: Call 911 immediately if you experience any of the following warning signs and symptoms of Stroke: * Sudden numbness or weakness of the face, arm or leg, especially on one side of the body * Sudden confusion, trouble speaking or understanding * Sudden trouble seeing in one or both eyes * Sudden trouble walking, dizziness, loss of balance or coordination * Sudden severe headache with no cause Do not delay calling 911 if you experience any warning signs or symptoms of a stroke. Delay in seeking medical attention may affect what treatments can be given to you. . Pending Studies at Discharge: Yes Studies:: TTE Stand-Alone Forms: My [facility], Smoking Cessation Medications and DC Order Prescriptions: New atorvastatin 40 mg tablet 40 mg PO HS Qty: 30 RF: 1 Continued amlodipine 5 mg tablet 5 mg PO DAILY RF: 0 omeprazole 40 mg capsule,delayed release(DR/EC) 40 mg PO DAILYBB RF: 0 aspirin 81 mg Tablet,Delayed Release (Dr/Ec) 81 mg PO DAILY RF: 0 acetaminophen [Tylenol Extra Strength] 500 mg Tablet 500 mg PO DIRECTED PRN (Reason: Pain) RF: 0 naproxen sodium [Aleve] 220 mg Tablet 440 mg PO QAM RF: 0 Discontinued atorvastatin 10 mg tablet 10 mg PO DAILY RF: 0 Discharge Orders: Discharge Order (Routine); Ordered 02/06/21 Ordered By: Nigel Mg Admission Data Admit Date/Time: 02/05/21 22:51 Attending Provider: Ashly Wolfe Admit Provider: Velasquez Azul Primary Care Provider: Tresa Martin Other Providers: Jeremy Van ; Duc Lawson Other Interventions: Discharge Summary Assessment (RN) Last Done: 02/06/21 14:57 Supervising Physician Co-Signing Physician Notes Resident Physician Supervision Note: I independently interviewed and examined the patient and verified the biggs history and physical, reviewed labs and image studies and agree with resident Dr. Mg findings and care plan. Resident Activity Tracking Resident Involvement: Resident Care Provided Care Provided: Adult Hospital Medicine
[2021-02-06] MEDS ORDERED: STROKE PATIENT DISCHARGE STA (14:28)
--- NOTE | 2021-02-06 14:53 | Pharmacy Report ---
Pharmacist Stroke Counseling - Date of Service February 06, 2021 - Scope: Pharmacy has been consulted to provide medication discharge counseling for this patient admitted with possible transient ischemic attack, MRI pending, as per the Pharmacist Discharge Counseling for Stroke Patients Protocol. - Medications on Discharge: Home Medications Medication Instructions Recorded Confirmed acetaminophen [Tylenol Extra 500 mg PO DIRECTED PRN 02/05/21 02/05/21 Strength] amlodipine 5 mg PO DAILY 02/05/21 02/05/21 aspirin 81 mg PO DAILY 02/05/21 02/05/21 naproxen sodium [Aleve] 440 mg PO QAM 02/05/21 02/05/21 omeprazole 40 mg PO DAILYBB 02/05/21 02/05/21 New Rx's Medication Instructions Recorded atorvastatin 40 mg PO HS #30 tab 02/06/21 - Action: The above medications, specifically ones for stroke treatment/prophylaxis, have been reviewed in detail with the patient's prior to discharge. This includes indication, common adverse reactions, drug interactions, and medication administration. Medication counseling has been employed using the teach-back method to ensure understanding. - Outcome: The patient's has demonstrated understanding of the medications for her . Thank you for allowing pharmacy to be involved in the care of this patient. Please call [phone] with any additional questions
--- NOTE | 2021-02-06 19:36 | Billing Data ---
Date of Service February 06, 2021 Coding Level of Care Code 79053 Initial Inpt Care Lvl 3
[2021-02-07 08:01] LABS: Estimated Average Glucose 114 mg/dl; Hemoglobin A1C 5.6 % (4.5-5.6)
== END 2021-02-06 15:52 | disposition home or self-care (01) | DRG 66 ==
LOC: ED 17:26 → 2N 22:51 → SUATTDRO 22:51 → 2N 23:09